=== PATIENT | female | born 1990 | race Caucasian/White ===

== ENCOUNTER 2020-07-30 10:11 | Outpatient (CLI) | payer OTHER, SELFPAY ==
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
== END 2020-07-30 10:12 | disposition home or self-care (01) ==
PROVIDERS: PCP Internal Medicine; Visit Provider Nurse Practitioner
DX: M47.22 Other spondylosis with radiculopathy, cervical region (principal)
CPT/HCPCS: 72125

== ENCOUNTER 2021-12-15 17:17 | Emergency (ER) | payer OTHER, MEDICAID, SELFPAY ==
[2021-12-15] VITALS (7 sets, daily range): BP systolic 90–113; BP diastolic 72–76; PULSE 101–129; RESP 16–25; TEMP 38; O2SAT 99–100
--- NOTE | ~2021-12-15 | US_ITS ---
EXAMINATION: US OB <=14 wk fetus w TV INDICATION: left flank/abd pain, r/o ectopic TECHNIQUE: Sonography of the pelvis was performed by transabdominal and transvaginal techniques. COMPARISON: None. RESULT: Uterus: - Orientation: Anteverted - Size: 8.7 x 4.6 x 5.7 cm - Myometrium: homogeneous echogenicity. Endometrial complex measures 14 mm. Gestation: - Intrauterine gestational sac: Not seen Right ovary: - Size : 2.5 x 1.3 x 1.6 cm - Normal sonographic appearance with physiologic follicles. Vascular flow is present. Left ovary: - Size: 2.7 x 1.7 x 2.1 cm - Normal sonographic appearance with physiologic follicles. Vascular flow is present. Pelvis free fluid: None. IMPRESSION: Positive test with no intrauterine gestational sac visualized. Findings represent pregnanc y of unknown location. Differential diagnosis includes early normal, failed early, or ectopic pregna ncy. Recommend follow-up serial beta-hCG values. Ultrasound follow-up should be considered as clini jc warranted. Reviewed, dictated and finalized at location K. IMPRESSION: Positive test with no intrauterine gestational sac visualized. Findi ngs represent of unknown location. Differential diagnosis includes e milagro normal, failed early, or ectopic . Recommend follow-up serial be ta-hCG values. Ultrasound follow-up should be considered as clinically warrant ed.
--- NOTE | 2021-12-15 17:40 | ED.FEVER ---
HPI - Fever General Chief Complaint: Fever <Carrie Melgoza PA-C - Last Filed: 12/15/21 20:39> Stated Complaint: fever <BRIANDA Benitez Last Filed: 12/15/21 20:39> Time Seen by Provider: 12/15/21 17:23 <BRIANDA Benitez Last Filed: 12/15/21 20:39> Source: patient <BRIANDA Benitez Last Filed: 12/15/21 20:39> Mode of arrival: ambulatory <BRIANDA Benitez Last Filed: 12/15/21 20:39> Limitations: no limitations <BRIANDA Benitez Last Filed: 12/15/21 20:39> History of Present Illness HPI Narrative: This is a 31 year old , about 4 weeks that presents to the ER for fever today. Associated with left sided flank pain radiating into her abdomen. The pain is a constant dull ache. It is worse with movement. Her son is COVID +. She is vaccinated, but not boosted. Dr. Wadsworth is her OB. She has had some blood work done this due to her history of miscarriages, but had not had her first OB visit yet. Denies cough, sore throat, vomiting, dysuria, or vaginal bleeding. <Carrie Melgoza PA-C - Last Filed: 12/15/21 20:39> Related Data Home Medications: Home Medications Medication Instructions Recorded Confirmed omega-3 fatty acids 1,000 mg 1,000 mg PO DAILY 06/03/20 06/03/20 capsule (Fish Oil Concentrate) prenat.vits,sammy,[id number] 1 tablet PO DAILY 06/03/20 06/03/20 <BRIANDA Benitez Last Filed: 12/15/21 20:39> Allergies/Adverse Reactions: Allergies Allergy/AdvReac Type Severity Reaction Status Date / Time No Known Allergies Allergy Verified 06/03/20 10:11 <BRIANDA Benitez Last Filed: 12/15/21 20:39> Review of Systems Review of Systems: CONSTITUTIONAL: Reports fever RESPIRATORY: Denies cough or dyspnea. GASTROINTESTINAL: Denies vomiting GENITOURINARY: Denies dysuria or hematuria. <Carrie Melgoza PA-C - Last Filed: 12/15/21 20:39> All systems reviewed & are unremarkable except as noted in HPI and below <Carrie Melgoza PA-C - Last Filed: 12/15/21 20:39> PMFSH Past Medical History Medical History: Medical History ADHD Depression was medication short time Dizziness Environmental allergies History of vaginal delivery 10/2010 and 08/2013 Joint pain Leg swelling Pet allergy Weight gain, abnormal 2019 <Carrie Melgoza PA-C - Last Filed: 12/15/21 20:39> Surgical History Surgical History: Surgical History History of tubal ligation 2013 and 2018 <Carrie Melgoza PA-C - Last Filed: 12/15/21 20:39> Family History Family History: Family History Other Heart disease Hypertension <Carrie Melgoza PA-C - Last Filed: 12/15/21 20:39> Social History Social History: Social History (Updated 12/15/21 @ 17:42 by Carrie Melgoza PA-C) Smoking status: Never smoker Second hand tobacco smoke exposure: Yes Additional smoking assessment comments: parents smoked around her as a child Alcohol intake: former Gender identity (if verbalized by the patient): Female <Carrie Melgoza PA-C - Last Filed: 12/15/21 20:39> Exam Narrative: GENERAL: Well-appearing, well-nourished, and in no acute distress. HEAD: Normocephalic, atraumatic. EYES: EOMI. ENT: Nares clear, no rhinorrhea or epistaxis. Mucous membranes moist. Oropharynx without tonsillar hypertrophy exudate or other lesions. NECK: Supple. No adenopathy or masses. CHEST: Clear to auscultation. No respiratory distress. No wheezes rales or rhonchi HEART: Regular rate and rhythm. No murmur heard. Normal peripheral pulses. ABDOMEN: Soft, nontender, nondistended, normal active bowel sounds. No CVA tenderness EXTREMITIES: Normal range of motion. No edema. SKIN: Warm, dry, no rash. NEURO: No focal deficits. Alert and oriented x3. PSYCH: Normal
[2021-12-15] MEDS: SODIUM CHLORIDE 0.9% IV 1,000 ML 999 ML IV CONT (17:47)
[2021-12-15] MEDS: ACETAMINOPHEN 325 MG TABLET 500 MG PO (17:50)
[2021-12-15 17:52] LABS: Basophils Absolute Auto 0.1 K/mm3 (0.0-0.1); Eosinophils Absolute Auto 0.2 K/mm3 (0-0.3); Eosinophils Percent Auto 2.5 % (0-4.4); Hematocrit 36.5 % (37.0-47.0); Hemoglobin 12.4 g/dL (12.0-15.0); Immature Granulocyte Absolute 0.02 K/mm3 (0.00-0.031); Immature Granulocyte Percent A 0.3 % (0-0.5); Lymphocytes Absolute Auto 0.34 K/mm3 (0.9-3.2); Lymphocytes Percent Auto 5.1 % (18.3-44.2); Mean Corpuscular Hemoglobin 30.8 pg (26-34); Mean Corpuscular Volume 90.8 fl (80-100); Mean Platelet Volume 10.1 fl (7.4-10.4); Monocytes Absolute Auto 0.5 K/mm3 (0.1-0.6); Monocytes Percent Auto 7.2 % (2.6-8.5); Neutrophils Absolute Auto 5.6 K/mm3 (1.3-6.7); Neutrophils Percent Auto 83.9 % (45.5-73.1); Platelet Count Result 235 k/mm3 (150-375); Red Blood Count 4.02 M/mm3 (4.2-5.4); Red Cell Distribution Width 13.4 % (11.5-14.5); White Blood Count 6.7 K/mm3 (4.5-10.0)
[2021-12-15 18:07] LABS: Alanine Aminotransferase 18 U/L (6-35); Alkaline Phosphatase 94 U/L (38-126); Anion Gap 8 mmol/L (8-16); Aspartate Amino Transferase 25 U/L (14-36); Bilirubin,Total 0.1 mg/dL (0.2-1.3); Blood Urea Nitrogen 9 mg/dL (7-17); Calcium 9.1 mg/dL (8.4-10.2); Carbon Dioxide 24 mmol/L (22-30); Chloride 106 mmol/L (98-107); Estimated CRCL calculation 78 ml/min; Estimated Glomerular Filt Rate > 60; Glucose 121 mg/dL (65-110); Potassium 3.9 mmol/L (3.4-5.0); Sodium 138 mmol/L (137-145)
[2021-12-15 18:18] LABS: SARS-CoV-2 RNA PCR Negative
[2021-12-15 18:28] LABS: Beta HCG Quantitative 84.67 mIU/ML
[2021-12-15 18:56] LABS: Appearance Urine Clear (Clear); Bilirubin Urine Negative (Negative); Blood Urine Negative (Negative); Color Urine Yellow (Yellow); Glucose Urine UA Negative (Negative); Ketones Urine Negative (Negative); Leukocyte Esterase Ur Negative LEU/UL (Negative); Nitrate Urine Negative (Negative); Protein Urine Negative (Negative); Urobilinogen Urine 0.2 mg/dL (<2.0)
[2021-12-15 18:58] LABS: Add Urine Microscopic? NO
== END 2021-12-15 20:57 | disposition home or self-care (01) ==
PROVIDERS: Physician Assistant; Emergency Provider Emergency Medicine; PCP Internal Medicine
DX: O99.891 Other specified diseases and conditions complicating pregnancy (principal); R50.9 Fever, unspecified; Z77.22 Contact with and (suspected) exposure to environmental tobacco smoke (acute) (chronic); Z3A.01 Less than 8 weeks gestation of pregnancy
CPT/HCPCS: 36415; 76801; 76817; 80053; 81003; 81025; 84702; 85025; 87804; 96360; 99283; 99284; A9270; C9803; J7030; U0003; U0005

== ENCOUNTER 2021-12-17 07:32 | Outpatient (CLI) | payer OTHER, SELFPAY ==
[2021-12-17 09:06] LABS: Beta HCG Quantitative 164.83 mIU/ML
== END 2021-12-17 07:33 | disposition home or self-care (01) ==
LOC: ANHLAB 07:33
PROVIDERS: PCP Internal Medicine; Visit Provider Physician Assistant
DX: Z34.90 Encounter for supervision of normal pregnancy, unspecified, unspecified trimester (principal); Z3A.00 Weeks of gestation of pregnancy not specified
CPT/HCPCS: 36415; 84702

== ENCOUNTER 2021-12-25 12:26 | Outpatient (CLI) | payer OTHER, SELFPAY ==
[2021-12-25 14:01] LABS: Beta HCG Quantitative 337.82 mIU/ML
== END 2021-12-25 12:27 | disposition home or self-care (01) ==
LOC: ANHLAB 12:31
PROVIDERS: PCP Internal Medicine; Visit Provider Obstetrics & Gynecology
DX: Z32.01 Encounter for pregnancy test, result positive (principal)
CPT/HCPCS: 36415; 84702

== ENCOUNTER 2021-12-27 07:06 | Outpatient (RCR) | payer OTHER, SELFPAY ==
[2021-12-12 12:16] LABS: Beta HCG Quantitative 27.43 mIU/ML
[2021-12-14 16:14] LABS: Beta HCG Quantitative 53.33 mIU/ML
== END 2022-03-11 09:22 | disposition home or self-care (01) ==
LOC: ANHOBOP 07:06
PROVIDERS: PCP Internal Medicine; Visit Provider Obstetrics & Gynecology
DX: Z32.01 Encounter for pregnancy test, result positive (principal); Z31.42 Aftercare following sterilization reversal
CPT/HCPCS: 36415; 84702; 86850; 86900; 86901

== ENCOUNTER 2022-01-02 17:31 | Outpatient (CLI) | payer OTHER, SELFPAY | END 2022-01-02 17:32 | disposition home or self-care (01) | LOC: ANHLAB 17:34 | PROVIDERS: PCP Internal Medicine; Visit Provider Obstetrics & Gynecology | DX: Z32.01 Encounter for pregnancy test, result positive (principal) | CPT/HCPCS: 36415; 84702 ==

== ENCOUNTER 2022-02-04 17:51 | Outpatient (RCR) | payer OTHER, SELFPAY ==
[2022-02-04 18:25] LABS: Beta HCG Quantitative < 2.39 mIU/ML
== END 2022-04-10 23:59 | disposition home or self-care (01) ==
LOC: ANHLAB 17:51
PROVIDERS: PCP Internal Medicine; Visit Provider Obstetrics & Gynecology
DX: O03.9 Complete or unspecified spontaneous abortion without complication (principal)
CPT/HCPCS: 36415; 84702

== ENCOUNTER 2022-04-26 17:02 | Outpatient (RCR) | payer OTHER, SELFPAY ==
[2022-04-24 13:23] LABS: Beta HCG Quantitative 19.08 mIU/ML
[2022-04-26 17:44] LABS: Beta HCG Quantitative 21.34 mIU/ML
== END 2022-07-23 23:59 | disposition home or self-care (01) ==
LOC: ANHOBOP 17:02
PROVIDERS: PCP Internal Medicine; Visit Provider Obstetrics & Gynecology
DX: Z32.01 Encounter for pregnancy test, result positive (principal); Z31.42 Aftercare following sterilization reversal; Z3A.00 Weeks of gestation of pregnancy not specified
CPT/HCPCS: 36415; 84702

== ENCOUNTER 2022-04-28 07:27 | Outpatient (CLI) | payer OTHER, SELFPAY ==
[2022-04-28 08:11] LABS: Beta HCG Quantitative 36.41 mIU/ML
== END 2022-04-28 07:28 | disposition home or self-care (01) ==
LOC: ANHLAB 07:30
PROVIDERS: PCP Internal Medicine; Visit Provider Obstetrics & Gynecology
DX: O20.0 Threatened abortion (principal); Z3A.00 Weeks of gestation of pregnancy not specified
CPT/HCPCS: 36415; 84702

== ENCOUNTER 2022-04-30 07:30 | Outpatient (CLI) | payer OTHER, SELFPAY ==
[2022-04-30 08:45] LABS: Beta HCG Quantitative 84.51 mIU/ML
== END 2022-04-30 07:31 | disposition home or self-care (01) ==
PROVIDERS: PCP Internal Medicine; Visit Provider Obstetrics & Gynecology
DX: O36.80X0 Pregnancy with inconclusive fetal viability, not applicable or unspecified (principal); Z3A.00 Weeks of gestation of pregnancy not specified
CPT/HCPCS: 36415; 84702

== ENCOUNTER 2022-05-02 08:31 | Outpatient (CLI) | payer OTHER, SELFPAY ==
[2022-05-02 09:18] LABS: Beta HCG Quantitative 40.45 mIU/ML
== END 2022-05-02 08:32 | disposition home or self-care (01) ==
LOC: ANHLAB 08:34
PROVIDERS: PCP Internal Medicine; Visit Provider Obstetrics & Gynecology
DX: O20.0 Threatened abortion (principal)
CPT/HCPCS: 36415; 84702

== ENCOUNTER 2022-05-09 08:14 | Outpatient (CLI) | payer OTHER, SELFPAY ==
[2022-05-09 08:55] LABS: Beta HCG Quantitative 3.24 mIU/ML
== END 2022-05-09 08:15 | disposition home or self-care (01) ==
PROVIDERS: PCP Internal Medicine; Visit Provider Obstetrics & Gynecology
DX: O03.9 Complete or unspecified spontaneous abortion without complication (principal)
CPT/HCPCS: 36415; 84702

== ENCOUNTER 2023-11-18 13:35 | Outpatient (CLI) | payer OTHER, SELFPAY ==
--- NOTE | ~2023-11-18 | US_ITS ---
US breast LT limited INDICATION: Left breast lump TECHNIQUE: Dedicated Limited left breast ultrasound COMPARISON: Ultrasound dated 12/17/2016 FINDINGS: The left breast is composed of normal heterogeneous echotexture without focal solid or cyst ic mass. IMPRESSION: 1: Normal left breast ultrasound. BI-RADS CATEGORY 1 - NEGATIVE Reviewed, dictated and finalized at location B.
== END 2023-11-18 13:36 ==
LOC: MICIMG 13:36
PROVIDERS: PCP Nurse Practitioner Obstetrics & Gynecology; Visit Provider Nurse Practitioner Obstetrics & Gynecology
DX: N63.20 Unspecified lump in the left breast, unspecified quadrant (principal)
CPT/HCPCS: 76642

== ENCOUNTER 2023-11-26 15:37 | Outpatient (CLI) | payer OTHER, SELFPAY ==
[2023-11-26 16:37] LABS: Beta HCG Quantitative < 2.39 mIU/ML
== END 2023-11-26 15:38 | disposition home or self-care (01) ==
LOC: ANHLAB 15:41
PROVIDERS: PCP Nurse Practitioner Obstetrics & Gynecology; Visit Provider Advanced Practice Midwife
DX: Z32.01 Encounter for pregnancy test, result positive (principal)
CPT/HCPCS: 36415; 84702

== ENCOUNTER 2024-05-20 13:34 | Emergency (ER) | payer OTHER, SELFPAY ==
--- NOTE | ~2024-05-20 | XR_ITS ---
XR foot LT min 3V DATE: 05/20/2024 14:02 INDICATION: Twisting injury one week ago. Pain with proximal fourth and fifth metatarsal bones TECHNIQUE: 4 views COMPARISON: None FINDINGS: No fracture or dislocation, periosteal reaction or bone destruction is detected. IMPRESSION: No significant bony abnormality Reviewed, dictated and finalized at location A. [employer]
--- NOTE | ~2024-05-20 | XR_ITS ---
XR knee LT 3V DATE: 05/20/2024 14:02 INDICATION: Twisting injury one week ago. Anterior left knee pain TECHNIQUE: 3 views COMPARISON: None FINDINGS: No fracture or dislocation or joint effusion. No periosteal reaction or bone destruction. J oint spaces are preserved. No radiopaque intra-articular loose body or chondrocalcinosis. IMPRESSION: Negative Reviewed, dictated and finalized at location A. NO FLOOR RUNNER IMPRESSION: Negative
[2024-05-20 13:36] VITALS: BP 129/70; PULSE 88; RESP 16; TEMP 36.6; O2SAT 100
--- NOTE | 2024-05-20 15:23 | ED_ITS ---
HPI - Extremity Injury (Lower) General Chief Complaint: Extremity Injury, Lower Stated Complaint: right leg pain Time Seen by Provider: 05/20/24 14:46 History of Present Illness HPI Narrative: Patient is a 33-year-old female who presents to the ER with left foot and left knee pain. She reports she was sitting on the floor 1 week ago, leaned forward, and heard a pop in her ankle. Patient reports she did not experience pain right away but started experiencing pain about an hour afterwards. Patient denies any swelling or bruising in her left knee or left foot. She reports it is ?throbbing? at night time. Patient reports mild relief with ibuprofen administration and heat. She denies any medical history related to this ER visit. Patient denies any fevers, previous injury to either joint, autoimmune disorders, urinary symptoms, saddle anesthesia. Related Data Home Medications Medication Instructions Recorded Confirmed omega-3 fatty acids 1,000 mg 1,000 mg PO DAILY 06/03/20 06/03/20 capsule (Fish Oil Concentrate) prenat.vits,sammy,oug-[id number] 1 tablet PO DAILY 06/03/20 06/03/20 Allergies Allergy/AdvReac Type Severity Reaction Status Date / Time amoxicillin Allergy Itching Verified 05/20/24 14:52 Review of Systems Review of Systems: All systems reviewed & are unremarkable except as noted in HPI and below PMFSH Past Medical History Medical History ADHD Depression was medication short time Dizziness Environmental allergies History of vaginal delivery 10/2010 and 08/2013 Joint pain Leg swelling Pet allergy Weight gain, abnormal 2019 Surgical History Surgical History History of tubal ligation 2013 and 2018 Family History Family History Other Heart disease Hypertension Social History Social History Smoking status: Never smoker Second hand tobacco smoke exposure: Yes Additional smoking assessment comments: parents smoked around her as a child Alcohol intake: former Gender identity (if verbalized by the patient): Female Exam Narrative: GENERAL: Well appearing, well-nourished, non-toxic, in no acute distress. HEAD: Normocephalic, atraumatic. NECK: Supple. No adenopathy, no masses. RESPIRATORY: Airway patent, respirations nonlabored. Clear to auscultation bilaterally, no rales, rhonchi, wheezing. CARDIOVASCULAR: Regular rate and rhythm without murmurs, rubs, or gallops. Peripheral pulses 2+ and equal bilaterally. ABDOMINAL: Soft, nontender, nondistended, no hepatosplenomegaly. Normoactive BS. MUSCULOSKELETAL: Moves all extremities. Strength/ROM intact without gross deformities. SKIN: Warm, dry, normal color. No rashes. NEURO: A&O X3. Speech clear. Cranial nerves II-XII grossly intact. No ataxic movements. PSYCHIATRIC: Appropriate mood and affect. Normal interaction. Course Vital Signs Vital signs: Vital Signs Temperature 36.6 C 05/20/24 13:36 Pulse Rate 88 05/20/24 13:36 Respiratory Rate 16 05/20/24 13:36 Blood Pressure 129/70 05/20/24 13:36 Pulse Oximetry 100 05/20/24 13:36 Oxygen Delivery Room Air 05/20/24 13:36 Temperature 36.6 C 05/20/24 13:36 Pulse Rate 88 05/20/24 13:36 Respiratory Rate 16 05/20/24 13:36 Blood Pressure 129/70 05/20/24 13:36 Pulse Oximetry 100 05/20/24 13:36 Oxygen Delivery Room Air 05/20/24 13:36 MDM - Extremity Injury (Lower) MDM Narrative Medical decision making narrative: Patient is a 33-year-old female who presents to the ER with left foot and left knee pain. She reports she was sitting on the floor 1 week ago, leaned forward, and heard a pop in her ankle. Patient reports she did not experience pain right away but started experiencing pain about an hour afterwards. Patient denies any swelling or bruising in her left knee or left foot. She reports it is ?throbbing? at night time. Patient reports mild relief with ibuprofen administration and heat. She denies any medical history related to this ER visit. Patient denies any fevers, previous injury to either joint, autoimmune disorders, urinary symptoms, saddle anesthesia. Labs Ordered: None needed Imaging Ordered: None needed Results: L knee x-ray negative for any acute findings, L ankle x-ray negative for any acute findings Diagnosis: L knee strain, L ankle sprain Risks: HEART score, PECARN score Patient Education/Shared MDM: Results shared with patient. Patient will be given Toradol IM and Solu-Medrol IM to treat her pain in the ER. She will be given naproxen and muscle relaxants upon discharge. Patient is strongly advised to use the RICE pneumonic when she gets home including rest, ice, compression, elevation. She will have Gui wraps applied to her left knee and her left foot. Patient declined a walking boot or crutches offered to her. Patient verbalizes understanding and is in agreement with plan. Patient is in agreement with current treatment plan. All questions answered. Vital signs stable at time of discharge. Differential Diagnosis Differential diagnosis: Likely ankle sprain and strain, acute internal d erangement of knee and ankle fracture Imaging Data Attestation: I personally reviewed and interpreted this imaging study as follows: Radiologist's impression: Impressions Foot X-Ray 05/20/24 14:18 IMPRESSION: No significant bony abnormality Knee X-Ray 05/20/24 14:21 IMPRESSION: Negative Discharge Plan Discharge Clinical Impression: Left knee sprain, Sprain of ankle, left Patient Disposition: Home, Self-Care Condition: Stable Instructions: Antibiotic Form, Ankle Sprain (ED), Knee Sprain (ED) Additional Instructions: Please return to the ER with an worsening symptoms. Follow-up with primary care provider in the next 2-3 days. Take all medications as prescribed. Prescriptions: No Action prenat.vits,sammy,[id number] Tablet 1 tablet PO DAILY omega-3 fatty acids [Fish Oil Concentrate] 1,000 mg capsule 1,000 mg PO DAILY Follow-up/Referrals: Kelly,Darlin Rose NP [Primary Care Provider] -
[2024-05-20] MEDS: KETOROLAC (*BKC) 60 MG/2 ML VIAL IM (15:32)
[2024-05-20] MEDS: methylPREDNISolone SOD SUCC 125 MG VIAL IM (15:32)
== END 2024-05-20 15:42 | disposition home or self-care (01) ==
PROVIDERS: Emergency Provider Registered Nurse; PCP Nurse Practitioner Obstetrics & Gynecology
DX: S83.92XA Sprain of unspecified site of left knee, initial encounter (principal); S93.402A Sprain of unspecified ligament of left ankle, initial encounter; X58.XXXA Exposure to other specified factors, initial encounter
CPT/HCPCS: 73562; 73630; 96372; 99284; J1885; J2919

== ENCOUNTER 2024-09-21 09:10 | Outpatient (CLI) | payer OTHER, SELFPAY ==
--- NOTE | 2024-09-21 | EST_ITS ---
Patient Info Name: Nikki Maria Age: 33 years : 1990 Gender: Female Ht: 60 in Wt: 212 lbs BSA: 2.07 m2 Exam Date: 09/21/2024 9:56 AM Exam Location: [facility] Patient Status: Outpatient Admit Date: 09/21/2024 Staff Ordering Physician: Nikko, Erika Velazquez NP Attending Provider: Nikko, Erika Velazquez NP Exercise Technologist: roge merida Nurse: Crystal Cuevas APN Exam Type: CA stress test treadmill Study Info Indications R00.2 - Palpitations I49.1 - Atrial premature depolarization A treadmill exercise stress test was performed. Summary 1. Normal stress ECG. 2. No arrhythmias were observed during the examination. 3. Exercise capacity fair to good at 6-10 METS. 4. Stress test supervised by Crystal Cuevas NP. Stress test interpreted by Prashant Singh MD. Protocol: Phan Stress ECG Details Stage: REST Duration (min): 5 min : 42 sec Speed (mph): 0.0 Grade (%): 0 HR (bpm): 73 SBP (mmHg): --- DBP (mmHg): --- METS: --- Stage: REST Duration (min): 13 min : 38 sec Speed (mph): 0.0 Grade (%): 0 HR (bpm): 82 SBP (mmHg): 116 DBP (mmHg): 69 METS: --- Stage: STAGE 1 Duration (min): 1 min : 0 sec Speed (mph): 1.7 Grade (%): 10 HR (bpm): 119 SBP (mmHg): 116 DBP (mmHg): 69 METS: --- Stage: STAGE 1 Duration (min): 2 min : 0 sec Speed (mph): 1.7 Grade (%): 10 HR (bpm): 141 SBP (mmHg): 116 DBP (mmHg): 69 METS: --- Stage: STAGE 1 Duration (min): 3 min : 0 sec Speed (mph): 1.7 Grade (%): 10 HR (bpm): 146 SBP (mmHg): 140 DBP (mmHg): 64 METS: --- Stage: STAGE 2 Duration (min): 1 min : 0 sec Speed (mph): 2.5 Grade (%): 12 HR (bpm): 156 SBP (mmHg): 140 DBP (mmHg): 64 METS: --- Stage: STAGE 2 Duration (min): 1 min : 47 sec Speed (mph): 2.5 Grade (%): 12 HR (bpm): --- SBP (mmHg): 259 DBP (mmHg): 70 METS: --- Stage: RECOVERY Duration (min): 0 min : 12 sec Speed (mph): 1.5 Grade (%): 0 HR (bpm): 161 SBP (mmHg): 259 DBP (mmHg): 70 METS: --- Stage: RECOVERY Duration (min): 1 min : 12 sec Speed (mph): 0.0 Grade (%): 0 HR (bpm): 131 SBP (mmHg): 267 DBP (mmHg): 78 METS: --- Stage: RECOVERY Duration (min): 2 min : 12 sec Speed (mph): 0.0 Grade (%): 0 HR (bpm): 100 SBP (mmHg): 267 DBP (mmHg): 78 METS: --- Stage: RECOVERY Duration (min): 3 min : 12 sec Speed (mph): 0.0 Grade (%): 0 HR (bpm): 106 SBP (mmHg): 267 DBP (mmHg): 78 METS: --- Stage: RECOVERY Duration (min): 4 min : 12 sec Speed (mph): 0.0 Grade (%): 0 HR (bpm): 94 SBP (mmHg): 267 DBP (mmHg): 78 METS: --- Stage: RECOVERY Duration (min): 4 min : 57 sec Speed (mph): 0.0 Grade (%): 0 HR (bpm): 89 SBP (mmHg): 218 DBP (mmHg): 73 METS: --- Rest HR: 82 bpm Peak HR: 163 bpm Rest Sys BP: 116 mmHg Peak Sys BP: 267 mmHg Max Pred HR: 188 bpm % Max Pred HR: 87 % Target HR: 160 bpm Max RPP: 43,521 bpm*mmHg Babin Score: -1 Target HR Summary: Patient's target heart rate was achieved Max ST Seg Deviation: 1.20 mm Total Time: 4 min : 47 sec Rest Rodriguez BP: 69 mmHg Peak Rodriguez BP: 78 mmHg Angina Score: None Total METS: 7.1 Resting ECG Normal sinus rhythm - normal ECG. Stress ECG No abnormal ST/T wave changes with exercise. Arrhythmias No arrhythmias were observed during the examination. Report Signatures
--- OUTSIDE RECORDS SUMMARY | 2024-09-21 09:26 | XMS_ITS | Data Portability ---
Author Organization [facility] Address [address] [place] [address] Care Team Providers Care Sewage Plant Supervisor Name Role Phone DAISY CHAN Primary Care Provider Assessment No assessment recorded. Plan of Treatment Reminders Order Date Submit Date Provider Last Modified By Organization Details Last Modified Time Details Appointments CONSULTAT ION 2024 11:30A Heather WADSWORTH MD Not available Not available Not available Lab 17-hydrox yprogestGIANNI hardy, serum 2023 024 [facility] (Lab), [address], [place], [address], 05/12/2024 18:00:32 dhea-sulf ate, serum 2023 024 [facility] (Lab), [address], [place], [address], 05/12/2024 18:00:27 estradiol , serum 2023 024 [facility] (Lab), [address] [place], [address], 05/12/2024 18:00:28 FSH (follicle -stimulat ing hormone), serum 2023 024 [facility] (Lab), [address] [place], [address], 05/12/2024 18:00:30 HbA1c (hemoglob in A1c), blood 2023 024 [facility] (Lab), [address], [place], [address], 05/12/2024 18:00:31 lh (luteiniz ing hormone), serum 2023 [facility] (Lab), [address], [place], [address], 05/12/2024 18:00:30 progester one, serum 2023 024 [facility] (Lab), [address], [place], [address], 05/12/2024 18:00:28 prolactin , serum 2023 [facility] (Lab), [address], [place], [address], 05/12/2024 18:00:29 shbg (sex hormone-b inding globulin) , serum 2023 024 [facility] (Lab), [address], [place], [address], 05/12/2024 18:00:31 TSH, serum or plasma 2023 [facility] (Lab), [address], [place], [address], 05/12/2024 18:00:29 testoster one free/test osterone total, ratio, serum 2023 [facility] (Lab), [address] [place], [address], 05/12/2024 18:00:32 test, urine 2023 [facility], [address], [address], [place], [address], 12/04/2023 10:02:18 Referral None recorded. Procedures None recorded. Surgeries None recorded. Imaging None recorded. Medication Orders Diflucan 150 mg tablet 2023 [facility] #[id number], [address] [facility], [place], [place], [id number], 01/08/2024 09:33:20 nystatin- triamcino lone 100,000 unit/gram -0.1 % topical ointment 2023 [facility] #[id number], [address], [place], [place], [id number], 01/08/2024 09:33:23 Patient TargetsNo targets recorded. Patient InstructionsNo instructions recorded. Reason for Referral None Reported. Results Created Date Observation Date Name Description Value Unit Range Abnormal Flag Note LastModifiedBy Organization Detail LastModifiedTime 11/16/1911/16/2023 CT/GC AND TRICH OMONA S VAGIN GUILHERME (RRNA ), URINE chlamydia trachomatis, PCR Negati ve negati ve Not Available [facility] (Lab) [address] [facility], [place], [address], 11/17/2023 13:00:24 11/16/19 24 11/16/2023 CT/GC AND TRICH OMONA S VAGIN GUILHERME (RRNA ), URINE neisseria gonorrhoeae, PCR Negati ve negati ve Not Available [facility] (Lab) [address], [place], [address], 11/17/2023 13:00:24 11/16/19 24 11/16/2023 CT/GC AND TRICH OMONA S VAGIN GUILHERME (RRNA ), URINE trichomonas vaginalis ribosomal RNA (rrna) Negati ve negati ve Not Available [facility] (Lab) [address] [facility], [place], [address], 11/17/2023 13:00:24 12/04/19 24 12/04/2023 pregn jessica test, urine HCG negati ve Not Available [address], [place], [address], 12/04/2023 10:02:01 12/09/19 24 12/09/2023 CHAS DA VAGIN ITIS PANEL RT-PC R, ONESW AB gregg albicans PCR Positi ve abnormal Swab- 1 Vag/C erv Not Available [facility] (Lab) [address] [facility], [place], [address], 12/15/2023 23:04:56 12/09/19 24 12/09/2023 CHAS DA VAGIN ITIS PANEL RT-PC R, ONESW AB gregg glabrata PCR Negati ve Swab- 1 Vag/C erv Not Available [facility] (Lab) [address] [facility], [place], [address], 12/15/2023 23:04:56 12/09/19 24 12/09/2023 CHAS DA VAGIN ITIS PANEL RT-PC R, ONESW AB gregg krusei by RT-PCR Negati ve Swab- 1 Vag/C erv Not Available [facility] (Lab) [address] [facility], [place], [address], 12/15/2023 23:04:56 12/09/19 24 12/09/2023 CHAS DA VAGIN ITIS PANEL RT-PC R, ONESW AB gregg parapsilosis PCR Negati ve Swab- 1 Vag/C erv Not Available [facility] (Lab) [address] [facility], [place], [address], 12/15/2023 23:04:56 12/09/19 24 12/09/2023 CHAS DA VAGIN ITIS PANEL RT-PC R, ONESW AB gregg tropicalis PCR Negati ve Swab- 1 Vag/C erv Not Available [facility] (Lab) [address] [facility], [place], [address], 12/15/2023 23:04:56 12/09/19 24 12/09/2023 BACTE RIAL VAGIN OSIS PANEL (WITH LACTO BACIL PERLITA PROFI LING) BY QRT LIZA, STACY PEARSON (YAMILKA) atopobium vaginae PCR Negati ve Swab- 1 Vag/C erv Not Available [facility] (Lab) [address] [place], [address], 12/15/2023 23:04:56 12/09/19 24 12/09/2023 BACTE RIAL VAGIN OSIS PANEL (WITH LACTO BACIL PERLITA PROFI LING) BY QRT LIZA, STACY PEARSON (YAMILKA) bacterial vaginosis associated bacterium 1 (bvab1) RT PCR Negati ve Swab- 1 Vag/C erv Not Available [facility] (Lab) [address] [place], [address], 12/15/2023 23:04:56 12/09/19 24 12/09/2023 BACTE RIAL VAGIN OSIS PANEL (WITH LACTO BACIL PERLITA PROFI LING) BY QRT PRC, STACY PEARSON (YAMILKA) bacterial vaginosis associated bacteria 2 (bvab2) Negati ve Swab- 1 Vag/C erv Not Available [facility] (Lab) [address] [place], [address], 12/15/2023 23:04:56 12/09/19 24 12/09/2023 BACTE RIAL VAGIN OSIS PANEL (WITH LACTO BACIL PERLITA PROFI LING) BY QRT LIZA, STACY PEARSON (YAMILKA) bacterial vaginosis associated bacterium 3 (bvab3) RT PCR Negati ve Swab- 1 Vag/C erv Not Available [facility] (Lab) [address] [place], [address], 12/15/2023 23:04:56 12/09/19 24 12/09/2023 BACTE RIAL VAGIN OSIS PANEL (WITH LACTO BACIL PERLITA PROFI LING) BY QRT LIZA, STACY PEARSON (YAMILKA) bacteroides fragilis by real - time PCR Negati ve Swab- 1 Vag/C erv Not Available [facility] (Lab) [address] [place], [address], 12/15/2023 23:04:56 12/09/19 24 12/09/2023 BACTE RIAL VAGIN OSIS PANEL (WITH LACTO BACIL PERLITA PROFI LING) BY QRT PRC, STACY PEARSON (L) bifidobacter ium breve by real-time PCR Negati ve Swab- 1 Vag/C erv Not Available [facility] (Lab) [address] [facility], [place], [address], 12/15/2023 23:04:56 12/09/19 24 12/09/2023 BACTE RIAL VAGIN OSIS PANEL (WITH LACTO BACIL PERLITA PROFI LING) BY QRT PRC, STACY PEARSON (L) gardnerella vaginalis PCR Negati ve Swab- 1 Vag/C erv Not Available [facility] (Lab) [address] [facility], [place], [address], 12/15/2023 23:04:56 12/09/19 24 12/09/2023 BACTE RIAL VAGIN OSIS PANEL (WITH LACTO BACIL PERLITA PROFI LING) BY QRT PRC, STACY PEARSON (L) lactobacillu s (bvpanel) PCR See Commen t Swab- 1 Vag/C erv L.cri spatu s: Negat justin L.melvina senii : Negat justin L.gas seri : Negat justin L.ine rs : Posit justin. Not Available [facility] (Lab) [address], [place], [address], 12/15/2023 23:04:56 12/09/19 24 12/09/2023 BACTE RIAL VAGIN OSIS PANEL (WITH LACTO BACIL PERLITA PROFI LING) BY QRT PRC, STACY PEARSON (L) lactobacillu s acidophilus by real-time PCR Negati ve Swab- 1 Vag/C erv Not Available [facility] (Lab) [address] [place], [address], 12/15/2023 23:04:56 12/09/19 24 12/09/2023 BACTE RIAL VAGIN OSIS PANEL (WITH LACTO BACIL PERLITA PROFI LING) BY QRT PRC, STACY PEARSON (YAMILKA) megasphaera species (type 1 and type 2) PCR Negati ve (Type1 ,Type2 ) Swab- 1 Vag/C erv Type1 :Nega tive Type2 :Nega tive. Not Available [facility] (Lab) [address] [place], [address], 12/15/2023 23:04:56 12/09/19 24 12/09/2023 BACTE RIAL VAGIN OSIS PANEL (WITH LACTO BACIL PERLITA PROFI LING) BY QRT PRC, STACY PEARSON (MDL) mobiluncus curtisii by real-time PCR Negati ve Swab- 1 Vag/C erv Not Available [facility] (Lab) [address] [place], [address], 12/15/2023 23:04:56 12/09/19 24 12/09/2023 BACTE RIAL VAGIN OSIS PANEL (WITH LACTO BACIL PERLITA PROFI LING) BY QRT PRC, STACY PEARSON (YAMILKA) mobiluncus mulieris by real-time PCR Negati ve Swab- 1 Vag/C erv Not Available [facility] (Lab) [address] [place], [address], 12/15/2023 23:04:56 12/09/19 24 12/09/2023 BACTE RIAL VAGIN OSIS PANEL (WITH LACTO BACIL PERLITA PROFI LING) BY QRT PRC, STACY PEARSON (YAMILKA) prevotella bivia by real-time PCR Negati ve Swab- 1 Vag/C erv Not Available [facility] (Lab) [address] [place], [address], 12/15/2023 23:04:56 12/09/19 24 12/09/2023 BACTE RIAL VAGIN OSIS PANEL (WITH LACTO BACIL PERLITA PROFI LING) BY QRT PRC, STACY PEARSON (MDL) sneathia sanguinegens real-time PCR Positi ve abnormal Swab- 1 Vag/C erv Not Available [facility] (Lab) [address] [facility], [place], [address], 12/15/2023 23:04:56 12/09/19 24 12/09/2023 BACTE RIAL VAGIN OSIS PANEL (WITH LACTO BACIL PERLITA PROFEliot LYON) BY QRT LIZA, STACY PEARSON (MDL) streptococcu s anginosus by real-time PCR Negati ve Swab- 1 Vag/C erv Not Available [facility] (Lab) [address] [facility], [place], [address], 12/15/2023 23:04:56 05/03/20 24 05/03/2024 DHEA SULFA TE DHEA-sulfate 213 ug/dL Femal e Range s Age(y ) Range (ug/d L) 10-15 34-28 0 15-20 65-36 8 20-25 148-4 07 25-35 99-34 0 35-45 61-33 7 45-55 35-25 6 55-65 19-20 5 65-75 9-246 > 75 12-15 4 Not Available [facility] (Lab) [address] [facility], [place], [address], 05/12/2024 18:00:27 05/03/20 24 05/03/2024 ESTRA DIOL estradiol 29.7 pg/mL This assay was perfo rmed using [employer] ratio n reage nts and test kits. Value s obtai edvin with other assay metho ds or kits canno t be used inter blevins eably . Femal e Estra diol Range s: Folli cular phase 12.4- 233 pg/mL Ovula tion phase 41.0- 398 pg/mL Lutea l phase 22.3- 341 pg/mL Postm enopa usal <5-13 8 pg/mL Healt hy Pregn ant Women 1st Trime ster 154-3 243 pg/mL 2nd Trime ster 1561- 59740 pg/mL 3rd Trime ster 8525- >3000 0 pg/mL Not Available [facility] (Lab) [address] [facility], [place], [address], 05/12/2024 18:00:28 05/03/20 24 05/03/2024 PROGE STERO NE progesterone 0.06 NG/mL This assay was perfo rmed using [employer] reage nts and test kits. Value s obtai edvin with other assay metho ds or kits canno t be used inter blevins eably . Femal e Proge stero ne Range s: Folli cular phase 0.06- 0.89 ng/mL Ovula tion phase 0.12- 12.00 ng/mL Lutea l phase 1.83- 23.90 ng/mL Postm enopa usal <0.05 -0.13 ng/mL Healt hy Pregn ant Women 1st Trime ster 11.0- 44.30 2nd Trime ster 25.40 -83.3 0 3rd Trime ster 58.70 -214. 00 Not Available [facility] (Lab) [address] [facility], [place], [address], 05/12/2024 18:00:28 05/03/20 24 05/03/2024 TSH, REFLE X FREE T4 TSH 4.05 uIU/m L 0.30-5 .33 Not Available [facility] (Lab) [address] [place], [address], 05/12/2024 18:00:29 05/03/20 24 05/03/2024 PROLA CTIN prolactin, total 33.50 NG/mL 4.79-2 3.30 high This assay was perfo rmed using [employer] n reage nts and test kits. Value s obtai edvin with other assay metho ds or kits canno t be used inter blevins eably . Not Available [facility] (Lab) [address] [facility], [place], [address], 05/12/2024 18:00:29 05/03/20 24 05/03/2024 LH (LUTE NIZIN G HORMO NE) LH 9.7 mIU/m L This assay was perfo rmed using [employer] reage nts and test kits. Value s obtai edvin with other assay metho ds or kits canno t be used inter [facility] . Femal es Mid-F ollic ular: 2.4-1 2.6 mIU/m L Mid-C ycle: 14.0- 95.6 mIU/m L Mid-L uteal : 1.0-1 1.4 mIU/m L Postm enopa use: 7.7-5 8.5 mIU/m L Not Available [facility] (Lab) [address] [facility], [place], [address], 05/12/2024 18:00:30 05/03/20 24 05/03/2024 FSH FSH 7.6 mIU/m L This assay was perfo rmed using [employer] reage nts and test kits. Value s obtai edvin with other assay metho ds or kits canno t be used inter [facility] . Femal es Folli cular : 3.5-1 2.5 mIU/m L Ovula tion: 4.7-2 1.5 mIU/m L Lutea l: 1.7-7 .7 mIU/m L Postm enopa use: 25.8- 134.8 mIU/m L Not Available [facility] (Lab) [address] [place], [address], 05/12/2024 18:00:30 05/03/20 24 05/03/2024 HUMAN SEX HORMO NE CATINA NG GLOBU KELSEY sex hormone binding globulin 31.7 nmole s/L 18.2-1 35.5 Not Available [facility] (Lab) [address], [place], [address], 05/12/2024 18:00:31 05/03/20 24 05/03/2024 HEMOG LOBIN A1C hemoglobin A1C 5.9 % 0-5.6 high The Ameri can Diabe doe Assoc iatio n recom mends that a prima ry goal of thera py shoul d be a HBA1C of < 7% and that physi cians shoul d reeva luate the treat ment regim en in patie nts with HBA1C value s consi stent ly > 8%. <5.7% Lucia l 5.7 - 6.4% Incre ased risk for diabe doe >=6.5 % Diagn ostic of diabe doe <7.0% Goal of thera py >8.0% Actio n sugge sted Not Available [facility] (Lab) [address] [facility], [place], [address], 05/12/2024 18:00:31 05/03/20 24 05/03/2024 TESTO STERO NE, FREE( DIALY SIS) AND TOTAL (LC/M S/MS) testosterone , total 29 NG/dL 2-45 For addit ional infor tim guy e refer to http: //[facility] zaria ghosh.que stdia gnost ics.c om/fa q/ Total Testo stero neLCM SMSFA Q165 (This link is being provi ded for infor roselyn gage/ educa joyce l purpo ses only. ) This test was devel oped and its north tical perfo rmanc e aracelis cteri stics have been deter mined by [employer] [facility], [place]. It has not been clear ed or appro ya by the U.S. Food and Drug Admin istra tion. This assay has been valid ated pursu ant to the CLIA regul ation s and is used for clini sammy purpo ses. Not Available [facility] (Lab) [address] [facility], [place], [address], 05/12/2024 18:00:32 05/03/20 24 05/03/2024 TESTO STERO NE, FREE( DIALY SIS) AND TOTAL (LC/M S/MS) testosterone , free 3.5 pg/mL 0.1-6. 4 This test was devel oped and its north tical perfo rmanc e aracelis cteri stics have been deter mined by [employer] Len [employer] [place], [place]. It has not been clear ed or appro ya by the U.S. Food and Drug Admin istra tion. This assay has been valid ated pursu ant to the CLIA regul ation s and is used for clini sammy purpo ses. Perfo rming Organ izati on [facility] n: Site ID: [id number] Name: [employer] Len amaral Insti tute Addre ss: [id number] [place], [place] Direc tor: Andreea Rodgers MD PhD Not Available [facility] (Lab) [address] [facility], [place], [address], 05/12/2024 18:00:32 05/03/20 24 05/03/2024 17-OH PROGE STERO NE 17-hydroxypr ogesterone, lc/MS/MS 23 NG/dL Adult Femal e Refer ence Range s for 17-Hy droxy proge stero ne: Pre-M enopa usal Mid Folli cular : 23-10 2 ng/dL Pre-M enopa usal Surge : 67-34 9 ng/dL Pre-M enopa usal Mid Lutea l: 139-4 31 ng/dL Postm enopa usal Phase : < or = 45 ng/dL Pregn jessica: First Trime ster: 78-45 7 ng/dL Secon d Trime ster: 90-35 7 ng/dL Third Trime ster: 144-5 78 ng/dL This test was devel oped and its north tical perfo rmanc e aracelis cteri stics have been deter mined by [employer]ise [employer]. It has not been clear ed or appro ya by FDA. This assay has been valid ated pursu ant to the CLIA regul ation s and is used for clini sammy purpo ses. Perfo rming Organ izati on [facility] n: Site ID: [id number] Name: [facility] [place] , Addre ss: [id number] [place] [address] Direc tor: Shira acharya MD,Ph D,MIKKI Not Available [facility] (Lab) [address], [place], [address], 05/12/2024 18:00:32 05/30/20 24 05/30/2024 PROLA CTIN prolactin, total 10.50 NG/mL 4.79-2 3.30 This assay was perfo rmed using [employer] n reage nts and test kits. Value s obtai edvin with other assay metho ds or kits canno t be used inter blevins eably . Not Available [facility] (Lab) [address], [place], [address], 05/31/2024 05:12:06 10/21/19 24 10/21/2023 US, pelvi s No observ ation record ed. [address], [place], [address], 11/16/2023 16:18:44 10/21/19 24 10/21/2023 US, trans vagin al No observ ation record ed. [address], [place], [address], 11/16/2023 16:18:44 10/21/19 24 10/21/2023 US, pelvi s No observ ation record ed. [facility] [address], [place], [address], 11/16/2023 16:18:44 11/19/19 24 11/18/2023 US, breas t, unila teral No observ ation record ed. ETHAN [facility] [address], [place], [address], 11/24/2023 13:05:47 Result Notes None recorded. Problems Name Problem SNOMED Code Status Onset Date Resolution Date Notes Provider Name and Address Organization Details Recorded Time Routine antenata l care Completed 201311/22/2020 Supervis ion of other normal pregnanc y;Practi ce ID: 0001 Brook asher, [facility] 15:57:14 Poor growth affectin g manageme nt [id number] Completed 201311/22/2020 GROWTH POOR SGA;Prac isidoro ID: 0001 Brook asher [facility] 15:57:01 Delivery normal [id number] Completed 201311/22/2020 Normal delivery ;Practic e ID: 0001 Brook asher, [facility] 15:56:49 Single live [id number] Completed 201311/22/2020 Mother with single liveborn ;Practic e ID: 0001 Brook asher [facility] 15:57:17 Procedur e on genitour inary system Completed 201311/22/2020 Steriliz ation;Pr actice ID: 0001 Brook Villanueva [facility], [facility] 15:57:11 Postpart um care Completed 201311/22/2020 Postpart um follow-u p;Practi ce ID: 0001 Brook Villanueva [facility], [facility] 15:57:[address] Concept Completed 201611/22/2020 Encntr for mural painter exam (general ) (routine ) w/o abn findings ;Practic e ID: 0001 Brook Villanueva [facility], [facility] 15:57:23 Micturit ion finding Completed 201611/22/2020 Urinary incontin ence;Rec orded Elsewher e: No Locat ion: [facility] S ource: EHR Rubber Chemist koby: N Practi ce ID: [id number] Toan lable Time: 01:15:00 PM Brook asher [facility] 06/11/202 1 15:56:46 Postoper ative follow-u p visit Completed 201311/22/2020 Follow-u p examinat ion, followin g unspecif ied surgery; Recorded Elsewher e: No Locat ion: [facility] d[facility] S ource: EHR Rubber Chemist koby: N Ivonne ce ID: [id number] Toan lable Time: 02:45:00 PM Brook Villanueva [facility] 1 15:57:03 Known OR suspecte d abnormal ity affectin g manageme nt of mother Completed 201211/22/2020 Unspecif ied suspecte d abnormal ity, affectin g manageme nt of mother, unspecif ied as to episode of care;Rec orded Elsewher e: No Locat ion: [facility] S ource: EHR Rubber Chemist koby: N Ivonne ce ID: [id number] Toan lable Time: 09:30:00 AM Brook Villanueva [facility] 1 15:56:53 Labor and delivery complica rg by heart rate anomaly [id number] Completed 201311/22/2020 ABNORMAL ITY IN HEART RATE OR RHYTHM, ANTEPART UM;Recor ded Elsewher e: No Locat ion: [facility] S ource: EHR Rubber Chemist koby: N Ivonne ce ID: [id number] Toan lable Time: 10:30:00 AM Brook Villanueva [facility] 1 15:56:56 Ultrason ography Completed 201211/22/2020 Antenata l screenin g for malforma tion using ultrason ics;Eleazar rded Elsewher e: No Locat ion: [facility] S ource: EHR Rubber Chemist koby: N Ivonne ce ID: [id number] Toan lable Time: 08:15:00 AM Brook Villanueva [facility] 1 15:57:34 Antenata l screenin g Completed 201211/22/2020 Antenata l screenin g for malforma tion using ultrason ics;Eleazar rded Elsewher e: No [facility]at [facility]ce: EHR Rubber Chemist koby: N Zulyti ce ID: [id number] Toan lable Time: 08:15:00 AM Brook asher, [facility] 1 15:56:42 Congenit al malforma tion [id number] Completed 201211/22/2020 Antenata l screenin g for malforma tion using ultrason ics;Eleazar rded Elsewher e: No Locat ion: [facility] S ource: [facility] koby: N Zulyti ce ID: 0001 Toan lable Time: 08:15:00 AM Brook Villanueva [facility], [facility] [address] 15:56:[address] Concept Completed 201611/22/2020 Encntr for general adult medical exam w/o abnormal findings ;Recorde d Elsewher e: No [facility]at [facility] N Zulyti ce ID: 0001 Toan lable Time: 01:15:00 PM Brook Villanueva [facility], [facility] 15:57:19 Finding of menstrua l bleeding Completed 201611/22/2020 Menorrha roque;Eleazar rded Elsewher e: No [facility]at [facility]: N Zulyti ce ID: 0001 Toan lable Time: 01:15:00 PM Brook asher, [facility] 1 15:56:51 Uterine size for dates discrepa ncy [id number] Completed 201211/22/2020 UTERINE SIZE DESTINY-ANTE PAR;Eleazar rded Elsewher e: No Locat ion: [facility] N Zulyti ce ID: [id number] Toan lable Time: 02:45:00 PM Brook Villanueva [facility], [facility] 15:57:36 Pregnanc y test positive [id number] Completed 201211/22/2020 Pregnanc y examinat ion or test, positive result;R ecorded Elsewher e: No Locat ion: [facility] addy [facility] S ource: [employer] koby: N Ivonne ce ID: [id number] Toan lable Time: 01:15:00 PM Brook Villanueva [facility] 15:57:[address] Concept Completed 201811/22/2020 Encntr for routine child health exam w/o abnormal findings ;Recorde d Elsewher e: No Locat ion: [facility] S ource: [employer] koby: N Ivonne ce ID: 0001 Toan lable Time: 05:45:00 PM Brook Villanueva [facility] 15:57:21 Left lower quadrant pain [id number] Completed 201211/22/2020 Abdomina l pain, left lower quadrant ;Recorde d Elsewher e: No Locat ion: [facility] S ource: EHR Rubber Chemist koby: Vinnie Coronado ce ID: 0001 Toan lable Time: 01:15:00 PM Brook Farnsworthtz [facility] 15:56:58 Amenorrh ea [id number] Completed 201211/22/2020 Absence of menstrua tion;Rec orded Elsewher e: No Locat ion: [facility] S ource: EHR Rubber Chemist koby: Vinnie Coronado ce ID: 0001 Toan lable Time: 01:15:00 PM Brook Villanueva [facility] 15:56:40 Speciali zed medical examinat ion Completed 201211/22/2020 Gynecolo gical Examinat ion;Eleazar rded Elsewher e: No Locat ion: [facility] S ource: EHR Rubber Chemist koby: N Ivonne ce ID: 0001 Toan lable Time: 01:15:00 PM Brook asher, [facility] 15:57:26 Transien t hyperten tania of pregnanc y - not delivere d [id number] Completed 201211/22/2020 Antepart um transien t hyperten tania;Pra ctice ID: 0001 Brook asher, [facility] 15:57:31 Threaten ed prematur e labor - not delivere d [id number] Completed 201211/22/2020 Threaten ed prematur e labor, antepart um;Pract ice ID: 0001 Brook asher, [facility] 15:57:28 Antepart um hemorrha ge [id number] Completed 201311/22/2020 Unspecif ied antepart um hemorrha ge;Pract ice ID: 0001 Brook asher, [facility] 15:56:43 Prematur e labor [id number] Completed 201311/22/2020 LABOR;Pr actice ID: 0001 Brook asher, [facility] 15:57:09 Problem Notes None recorded. Procedures Surgical History Date Name Laterality Status Provider Name and Address Organization Details Recorded Time 12/04/19 24 IUD Insertion completed Jasen Wadsworth MD [address], [place], [address], [facility] 12/04/2023 10:28:28 02/26/20 23 Date of Last Pap Smear completed Geraldine Huizar [facility] 10/19/2023 15:13:18 10/10/19 22 Cauterization of cervix completed Shani Campos [facility] 10/30/2021 15:44:13 04/23/20 20 Colposcopy completed Erika Nesbitt CNM [address], [place], [address], [place] [facility] 04/23/2020 16:08:34 02/15/20 19 open reversal of female sterilization completed Brook Villanueva [facility] 03/26/2020 11:02:03 09/05/19 14 ligation of bilateral fallopian tubes completed Brook Villanueva [facility] 11/22/2020 15:59:51 Imaging Results Imaging Date Name Status LastModified by Organization Details LastModified Time 10/21/2023 US, pelvis completed [email or web address] [facility] [address], [place], [address], 11/16/2023 16:18:44 10/21/2023 US, transvaginal completed [email or web address] [facility] [address], [place], [address], 11/16/2023 16:18:44 10/21/2023 US, pelvis completed [email or web address] [facility] [address], [place], [address], 11/16/2023 16:18:44 11/18/2023 US, breast, unilateral completed ETHAN [facility] [address], [place], [address], 11/24/2023 13:05:47 Procedure Notes None recorded. Medical Equipment None Reported. Allergies Allergen ID Allergen Name Allergen Category Reaction Reaction Severity Criticality Documentation Date Start Date Code Code System Note Provider Name and Address Organization Details Recorded Time 70658 amoxicill in medicatio n rash Not available Not available 11/22/2020 723 RxNorm Brook asher, [facility] 16:01:11 Medications Name Sig Start Date Stop Date Status Note LastModified by Organization Details LastModified Time Mirena 21 mcg/24 hr (up to 8 years) 52 mg intrauter ine device Take by intraute rine route. 2023 active Not Available Not Available Not Avai lable doxycycli ne hyclate 100 mg capsule TAKE 1 CAPSULE BY MOUTH TWICE DAILY WITH FOOD AND WATER 10/18 completed Not Available Not Available Not Available azithromy shweta 250 mg tablet TAKE 2 TABLETS BY MOUTH FOR 1 DAY THEN TAKE 1 TABLET BY MOUTH DAILY FOR 4 DAYS DIRECTED 02/25 completed Not Available Not Available Not Available fluconazo le 150 mg tablet TAKE 1 TABLET BY MOUTH EVERY OTHER DAY 01/07 completed Not Available Not Available Not Available clomiphen e citrate 50 mg tablet TAKE 3 TABLETS BY MOUTH ON DAYS 5 TO 9 OF CYCLE ONLY 09/11 completed Not Available Not Available Not Available metronida zole 0.75 % (37.5 mg/5 gram) vaginal gel INSERT 1 APPLICAT ORFUL VAGINALL Y EVERY DAY FOR 5 DAYS 04/29 completed Not Available Not Available Not Available prednison e 20 mg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 14:35:37 Abnormal uterine bleeding [id number] 9100 N93.9 Polycystic ovary syndrome 902362416 E28.2 Menorrhagia 815435444 N9 2.0 Pain in pelvis 02195822 R10.2 story consistent with endometrio sis. Health Concerns Section Related Observation LastModified by Organization Detai ls LastModified Time None Recorded Concern Status LastModified by Organization Details LastModified Time None Recorded Advance Directives Directive N: Payers Encounter Date Sequence Insurance Name Policy Number Policy Spangler Covered Member ID Spangler Member ID Guarantor Name 11/16/2023 1 UMR [id number] Destin W Crow [id number] Kailie [place]-Crow 12/04/2023 1 UMR [id number] Destin W Crow [id number] Kailie [place]-Crow 12/09/2023 1 UMR [id number] Destin W Crow [id number] Kailie [place] 01/08/2024 1 UMR [id number] Destin W Crow [id number] Kailie [place]-Crow 04/29/2024 2 UMR [id number] Destin Crow [id number] Kailie [place]-Crow 04/29/2024 1 R [id number] Destin W Crow [id number] Kailie [place]-Crow Notes Date Note Type Note Provider Name and Address Organization Details Recorded Time 11/16/2023 text/html Here today for b irth control consult and std screening. Darlin Mendoza, ERICKA- [address], [place], [address], [facility] 11/16/2023 16:19:27 12/04/2023 text/html Patient presents for IUD insertion. She understands the procedure. We explained to her in detail. She understands risks, benefits, and alternatives. She has completed the informed consent process And is ready to proceed Jasen Wadsworth MD [address], [place], [address], [facility] 12/04/2023 10:37:57 12/09/2023 text/html Vaginal/Vulvar ProblemReported bypatient.Notes:32-y ear-old female who presents for vulvar irritation. She is severe vulvar irritation. She reports some white vaginal discharge. She denies any odor. She denies any foul-smelling discharge. The vulva was examined. The distal vagina was examined. There was thick white discharge. We agreed to treat with to medications. I described the 2 medications with the patient. I described risks, benefits, and alternatives. She was given precautions and I described side effects to the patient. She is prescribed Diflucan tablets and a combination antifungal, steroid cream for the vulva. Jasen Wadsworth MD [address], [place], [address], [facility] 12/09/2023 18:22:42 01/08/2024 text/html This patient is a 33-year-old who presents for IUD check. She has no complaints. She was examined with a speculum. The cervix appears normal, the IUD string appears normally placed, the IUD was not visible. She will follow up as needed. Jasen Wadsworth MD [address], [place], [address], [facility] 01/08/2024 09:49:51 OBGyn Episode Ob Episode Information Episode Created Date Number of Fetuses Patient Bloodtype Patient rh Status Prepregnancy Weight lbs Domestic Partner Domestic Partner Phone Father Name Tin Can Laborer Status 03/25/20 20 1 CLOSED Fetus Data First Name Last Name Admitted to NICU Weight (g) Sex Living Outcome Pediatric Complications Fetus ID Race Codes Race Delivery Type 2154.56 2 M Full Term [id number] Vaginal Delivery Jaylan Calculation Initial Jaylan Date Initial Exam Date Initial Exam Provider Initial Ultrasound Date Last Menstrual Period Date Ultra Sound Weeks Gestation 0 Eighteen To Twenty Week Jaylan Update Ultra Sound Date Fundal Height At Umbil Quickening Date Ultra Sound Latest Weeks Gestation Final Jaylan Confirmed By Final Jaylan Confirmed Date Final Jaylan Date Ultra Sound Latest Days Gestation 0 0 Menstrual History Last Menstrual Date Menses Monthly On Bcp Conception Prior Menses Frequency Hcg Plus Date Menarche Onset Age Delivery Information Delivery Date Delivery Type Labor Anesthesia Weeks Gestation Incision Type Labor Labor Length Hrs Delivered By Post Complications Tubal Sterilization Discharge Date Comments 4 37 oligohyd r amnios Discharge Information Feeding Method Contraceptive Method Maternal HG B and HCT Levels Ob Episode Information Episode Created Date Number of Fetuses Patient Bloodtype Patient rh Status Prepregnancy Weight lbs Domestic Partner Domestic Partner Phone Father Name Tin Can Laborer Status 03/25/20 20 1 CLOSED Fetus Data First Name Last Name Admitted to NICU Weight (g) Sex Living Outcome Pediatric Complications Fetus ID Race Codes Race Delivery Type , Spontane ous [id number] Jaylan Calculation Initial Jaylan Date Initial Exam Date Initial Exam Provider Initial Ultrasound Date Last Menstrual Period Date Ultra Sound Weeks Gestation 0 Eighteen To Twenty Week Jaylan Update Ultra Sound Date Fundal Height At Umbil Quickening Date Ultra Sound Latest Weeks Gestation Final Jaylan Confirmed By Final Jaylan Confirmed Date Final Jaylan Date Ultra Sound Latest Days Gestation 0 0 Menstrual History Last Menstrual Date Menses Monthly On Bcp Conception Prior Menses Frequency Hcg Plus Date Menarche Onset Age Delivery Information Delivery Date Delivery Type Labor Anesthesia Weeks Gestation Incision Type Labor Labor Length Hrs Delivered By Post Complications Tubal Sterilization Discharge Date Comments 3 9 11/2012 miscarria ge Discharge Information Feeding Method Contraceptive Method Maternal HG B and HCT Levels Ob Episode Information Episode Created Date Number of Fetuses Patient Bloodtype Patient rh Status Prepregnancy Weight lbs Domestic Partner Domestic Partner Phone Father Name Tin Can Laborer Status 03/25/20 20 1 CLOSED Fetus Data First Name Last Name Admitted to NICU Weight (g) Sex Living Outcome Pediatric Complications Fetus ID Race Codes Race Delivery Type 2664.85 3 F Prematur e [id number] Vaginal Delivery Jaylan Calculation Initial Jaylan Date Initial Exam Date Initial Exam Provider Initial Ultrasound Date Last Menstrual Period Date Ultra Sound Weeks Gestation 0 Eighteen To Twenty Week Jaylan Update Ultra Sound Date Fundal Height At Umbil Quickening Date Ultra Sound Latest Weeks Gestation Final Jaylan Confirmed By Final Jaylan Confirmed Date Final Jaylan Date Ultra Sound Latest Days Gestation 0 0 Menstrual History Last Menstrual Date Menses Monthly On Bcp Conception Prior Menses Frequency Hcg Plus Date Menarche Onset Age Delivery Information Delivery Date Delivery Type Labor Anesthesia Weeks Gestation Incision Type Labor Labor Length Hrs Delivered By Post Complications Tubal Sterilization Discharge Date Comments 1 34 true labor and delivery Discharge Information Feeding Method Contraceptive Method Maternal HG B and HCT Levels
== END 2024-09-21 09:11 | disposition home or self-care (01) ==
PROVIDERS: PCP Nurse Practitioner Obstetrics & Gynecology; Visit Provider Nurse Practitioner Adult Health
DX: I49.1 Atrial premature depolarization (principal); R00.2 Palpitations
CPT/HCPCS: 93017